=== PATIENT | female | born 1985 | race Caucasian/White ===

== ENCOUNTER 2024-02-11 18:03 | Emergency (ER) | payer OTHER ==
[~2024-02-11] VITALS: Ht 170.2 cm; Wt 90.7 kg
[2024-02-11 18:14] VITALS: BP 87/58; PULSE 71; RESP 18; TEMP 97.2; O2SAT 97
[2024-02-11] MEDS ORDERED: CYCL-711 PO (18:54)
[2024-02-11] MEDS ORDERED: FAMO-90 PO (18:54)
[2024-02-11] MEDS ORDERED: METH1ADH21 TP (18:54)
[2024-02-11] MEDS ORDERED: NAPR-1704 PO (18:54)
== END 2024-02-11 19:24 | disposition home or self-care (01) ==
LOC: MED 18:03
DX: M25.511 Pain in right shoulder (principal); M25.512 Pain in left shoulder; M54.2 Cervicalgia; R51.9 Headache, unspecified
CPT/HCPCS: 81025; 99283